=== PATIENT | male | born 1975 | race African-American/Black ===

== ENCOUNTER 2017-05-11 20:07 | Emergency (ER) | payer SELFPAY ==
[2017-05-11 20:09] VITALS: BP 131/69; PULSE 62; RESP 16; TEMP 98.5; O2SAT 96
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
[2017-05-11] MEDS ORDERED: TETANUS/DIPHTHERIA TOXOID ADULT 0.5 ML VIAL IM ONE (21:15)
== END 2017-05-11 21:23 | disposition home or self-care (01) ==
LOC: NEPD 20:07
DX: S01.81XA Laceration without foreign body of other part of head, initial encounter (principal); W19.XXXA Unspecified fall, initial encounter; Y93.K1 Activity, walking an animal; Z23 Encounter for immunization
CPT/HCPCS: 12013; 90471; 90714